=== PATIENT | male | born 1950 ===

== ENCOUNTER 2020-03-06 08:49 | Inpatient (IN) ==
[2020-03-06 09:51] LABS: ABS Lymphocytes 0.7 10^3/ul (1.0-4.8); ABS Monocytes 0.4 10^3/ul (0-0.8); ABS Neutrophils 4.2 10^3/ul (1.5-7.7); Eosinophil % 0.1 %; Hematocrit 37 % (42-52); Hemoglobin 12.6 g/dL (14.0-18.0); Lymphocyte % 12.9 %; Mean Corpuscular HGB Conc 34 g/dL (31-36); Mean Corpuscular Hemoglobin 32 pg (27-31); Mean Corpuscular Volume 92 fL (80-94); Mean Platelet Volume 8.1 fL (7.4-10.4); Platelet Count 150 10^3/uL (150-450); Red Blood Count 4.01 10^6 /uL (4.18-5.48); Red Cell Distribution Width 13 % (10-15); White Blood Count 5.3 10^3/uL (3.5-10.8)
[2020-03-06 10:07] LABS: Activated Partial Thrombo Time 30.9 seconds (26.0-38.0); INR 1.06 (0.82-1.09)
[2020-03-06 10:13] LABS: ALT 64 U/L (7-52); AST 111 U/L (13-39); Albumin 3.2 g/dL (3.2-5.2); Albumin/Globulin Ratio 0.8 (1-3); Alkaline Phosphatase 72 U/L (34-104); Anion Gap 7 mmol/L (2-11); BUN/Creatinine Ratio 16.7 (8-20); Blood Urea Nitrogen 20 mg/dL (6-24); C Reactive Protein 102.08 mg/L (<8.01); CO2 Carbon Dioxide 27 mmol/L (22-32); Calcium 8.7 mg/dL (8.6-10.3); Chloride 103 mmol/L (101-111); EGFR African American 73.1 (>60); EGFR Non-African American 60.4 (>60); Globulin 3.8 g/dL (2-4); Glucose 93 mg/dL (70-100); Potassium 4.2 mmol/L (3.5-5.0); Sodium 137 mmol/L (135-145)
[2020-03-06 10:17] LABS: Troponin I 0.05 ng/mL (<0.03)
[2020-03-06 10:28] LABS: LDH 335 U/L (140-271)
[2020-03-06 10:40] LABS: Ferritin 373.8 ng/mL (24-336)
[2020-03-06 11:03] LABS: Influenza A Molecular Negative (Negative); Influenza B Molecular Negative (Negative)
[2020-03-06] MEDS ORDERED: Ondansetron 4 mg VIAL 2 MG/ML 2 ml VIAL IV PRN (12:03)
[2020-03-06] MEDS ORDERED: Dexamethasone IV 6 MG in NS 0.9% 50 ML 50 ML IVPB SCH (13:00)
[2020-03-06] MEDS ORDERED: Dexamethasone IV 4 MG/ML VIAL 1 ml VIAL IV SLOW PU SCH (14:00)
[2020-03-06] MEDS: Enoxaparin 40 MG/0.4 ML SYR SUBCUT SCH (16:22)
[2020-03-06] MEDS ORDERED: Remdesivir 5 MG/ML LIQ IV Vial 200 MG in NS 0.9% 250 ml 210 ML IV ONE (17:00)
[2020-03-07 04:23] LABS: Urine Appearance Cloudy; Urine Bilirubin Negative (Negative); Urine Blood 2+ (Negative); Urine Color Yellow; Urine Glucose Negative (Negative); Urine Ketones 1+ (Negative); Urine Nitrite Negative (Negative); Urine Protein 2+(100 mg/dL) (Negative); Urine Specific Gravity 1.027 (1.010-1.030); Urine Urobilinogen Negative (Negative)
[2020-03-07 04:31] LABS: Urine Bacteria Absent (Absent); Urine Granular Casts Present (Absent); Urine Red Blood Cell Trace(0-2/hpf) (Absent); Urine Squamous Epithelial Cell Present (Absent); Urine White Blood Cell Trace(0-5/hpf) (Absent)
[2020-03-07 07:18] LABS: ABS Lymphocytes 0.4 10^3/ul (1.0-4.8); ABS Monocytes 0.2 10^3/ul (0-0.8); ABS Neutrophils 2.9 10^3/ul (1.5-7.7); Hematocrit 40 % (42-52); Hemoglobin 13.6 g/dL (14.0-18.0); Lymphocyte % 10.1 %; Mean Corpuscular HGB Conc 34 g/dL (31-36); Mean Corpuscular Hemoglobin 32 pg (27-31); Mean Corpuscular Volume 93 fL (80-94); Mean Platelet Volume 8.3 fL (7.4-10.4); Nucleated Red Blood Cells % 0.1; Platelet Count 169 10^3/uL (150-450); Red Cell Distribution Width 13 % (10-15); White Blood Count 3.5 10^3/uL (3.5-10.8)
[2020-03-07 07:30] LABS: ALT 79 U/L (7-52); AST 99 U/L (13-39); Albumin 3.2 g/dL (3.2-5.2); Albumin/Globulin Ratio 0.8 (1-3); Alkaline Phosphatase 75 U/L (34-104); Anion Gap 6 mmol/L (2-11); BUN/Creatinine Ratio 23.7 (8-20); Blood Urea Nitrogen 23 mg/dL (6-24); CO2 Carbon Dioxide 29 mmol/L (22-32); Calcium 8.9 mg/dL (8.6-10.3); Chloride 103 mmol/L (101-111); EGFR African American 93.4 (>60); EGFR Non-African American 77.2 (>60); Globulin 3.9 g/dL (2-4); Glucose 133 mg/dL (70-100); Magnesium 1.9 mg/dL (1.9-2.7); Potassium 4.5 mmol/L (3.5-5.0); Sodium 138 mmol/L (135-145); Total Protein 7.1 g/dL (6.4-8.9)
[2020-03-07 07:42] LABS: Troponin I 0.03 ng/mL (<0.03)
[2020-03-07] MEDS: Enoxaparin 40 MG/0.4 ML SYR SUBCUT SCH (12:58)
[2020-03-07] MEDS: Dexamethasone IV 4 MG/ML VIAL 1 ml VIAL PO SCH (12:58)
[2020-03-07 15:12] LABS: Adenovirus Negative (Negative); Bordetella parapertussis Negative (Negative); Bordetella pertussis Negative (Negative); Chlamydophila pneumoniae Negative (Negative); Coronavirus 229E Negative (Negative); Coronavirus HKU1 Negative (Negative); Coronavirus NL63 Negative (Negative); Coronavirus OC43 Negative (Negative); Human Metapneumovirus Negative (Negative); Human Rhinovirus/ Enterovirus Negative (Negative); Influenza A Negative (Negative); Influenza B Negative (Negative); Mycoplasmoides pneumoniae Negative (Negative); Parainfluenza Virus 1 Negative (Negative); Parainfluenza Virus 2 Negative (Negative); Parainfluenza Virus 3 Negative (Negative); Parainfluenza Virus 4 Negative (Negative); Respiratory Syncytial Virus Negative (Negative); Specimen Source NASOPHARYNGEAL SWAB
[2020-03-07] MEDS: Remdesivir 5 MG/ML LIQ IV Vial 100 MG in NS 0.9% 250 ml 230 ML IV SCH (19:07)
[2020-03-08] MEDS: Dexamethasone IV 4 MG/ML VIAL 1 ml VIAL PO SCH (09:21)
[2020-03-08 09:55] LABS: ABS Lymphocytes 0.4 10^3/ul (1.0-4.8); ABS Monocytes 0.5 10^3/ul (0-0.8); ABS Neutrophils 8.2 10^3/ul (1.5-7.7); Hematocrit 39 % (42-52); Hemoglobin 13.1 g/dL (14.0-18.0); Lymphocyte % 4.8 %; Mean Corpuscular HGB Conc 34 g/dL (31-36); Mean Corpuscular Hemoglobin 31 pg (27-31); Mean Corpuscular Volume 92 fL (80-94); Mean Platelet Volume 8.6 fL (7.4-10.4); Platelet Count 234 10^3/uL (150-450); Red Cell Distribution Width 13 % (10-15); White Blood Count 9.2 10^3/uL (3.5-10.8)
[2020-03-08 10:25] LABS: Albumin 3.1 g/dL (3.2-5.2); Calcium 8.6 mg/dL (8.6-10.3); Potassium 4.1 mmol/L (3.5-5.0); Total Bilirubin 0.3 mg/dL (0.2-1.0)
[2020-03-08 10:31] LABS: Albumin/Globulin Ratio 0.8 (1-3); BUN/Creatinine Ratio 27.7 (8-20); EGFR African American 96.9 (>60); Globulin 3.8 g/dL (2-4); Total Protein 6.9 g/dL (6.4-8.9)
[2020-03-08] MEDS ORDERED: Enoxaparin 30 MG/0.3 ML SYR SUBCUT SCH (15:00)
[2020-03-08] MEDS: Remdesivir 5 MG/ML LIQ IV Vial 100 MG in NS 0.9% 250 ml 230 ML IV SCH (19:34)
[2020-03-08] MEDS: Enoxaparin 30 MG/0.3 ML SYR SUBCUT SCH (19:36)
[2020-03-09] MEDS: Enoxaparin 30 MG/0.3 ML SYR SUBCUT SCH ×2 (05:11→19:49)
[2020-03-09 07:50] LABS: Albumin 3.1 g/dL (3.2-5.2); Calcium 8.6 mg/dL (8.6-10.3); Potassium 4.3 mmol/L (3.5-5.0); Total Bilirubin 0.4 mg/dL (0.2-1.0)
[2020-03-09 07:56] LABS: Albumin/Globulin Ratio 0.9 (1-3); BUN/Creatinine Ratio 25.7 (8-20); EGFR African American 89.2 (>60); EGFR Non-African American 73.7 (>60); Globulin 3.4 g/dL (2-4); Total Protein 6.5 g/dL (6.4-8.9)
[2020-03-09 08:25] LABS: ABS Lymphocytes 0.6 10^3/ul (1.0-4.8); ABS Monocytes 0.9 10^3/ul (0-0.8); ABS Neutrophils 9.4 10^3/ul (1.5-7.7); Hematocrit 36 % (42-52); Hemoglobin 12.5 g/dL (14.0-18.0); Lymphocyte % 5.1 %; Mean Corpuscular HGB Conc 35 g/dL (31-36); Mean Corpuscular Hemoglobin 32 pg (27-31); Mean Corpuscular Volume 92 fL (80-94); Mean Platelet Volume 8.4 fL (7.4-10.4); Platelet Count 243 10^3/uL (150-450); Red Blood Count 3.91 10^6 /uL (4.18-5.48); Red Cell Distribution Width 13 % (10-15); White Blood Count 10.9 10^3/uL (3.5-10.8)
[2020-03-09] MEDS: Remdesivir 5 MG/ML LIQ IV Vial 100 MG in NS 0.9% 250 ml 230 ML IV SCH (19:47)
[2020-03-10] MEDS: Enoxaparin 30 MG/0.3 ML SYR SUBCUT SCH ×2 (06:56→17:26)
[2020-03-10] MEDS: Remdesivir 5 MG/ML LIQ IV Vial 100 MG in NS 0.9% 250 ml 230 ML IV SCH (19:05)
[2020-03-11] MEDS: Enoxaparin 30 MG/0.3 ML SYR SUBCUT SCH ×2 (04:50→18:21)
[2020-03-11 10:00] LABS: ABS Basophils 0.1 10^3/ul (0-0.2); ABS Monocytes 1.1 10^3/ul (0-0.8); ABS Neutrophils 10.5 10^3/ul (1.5-7.7); Hematocrit 39 % (42-52); Hemoglobin 13.3 g/dL (14.0-18.0); Lymphocyte % 8.1 %; Mean Corpuscular HGB Conc 34 g/dL (31-36); Mean Corpuscular Hemoglobin 31 pg (27-31); Mean Corpuscular Volume 91 fL (80-94); Mean Platelet Volume 7.9 fL (7.4-10.4); Platelet Count 327 10^3/uL (150-450); Red Blood Count 4.26 10^6 /uL (4.18-5.48); Red Cell Distribution Width 13 % (10-15); White Blood Count 12.6 10^3/uL (3.5-10.8)
[2020-03-11 10:17] LABS: Albumin/Globulin Ratio 0.9 (1-3); C Reactive Protein 18.35 mg/L (<8.01); Calcium 8.6 mg/dL (8.6-10.3); EGFR African American 90.2 (>60); EGFR Non-African American 74.5 (>60); Globulin 3.4 g/dL (2-4); Potassium 3.9 mmol/L (3.5-5.0); Total Bilirubin 0.5 mg/dL (0.2-1.0); Total Protein 6.4 g/dL (6.4-8.9)
[2020-03-11] MEDS: Remdesivir 5 MG/ML LIQ IV Vial 100 MG in NS 0.9% 250 ml 230 ML IV SCH (18:21)
[2020-03-12 05:19] LABS: ABS Lymphocytes 0.9 10^3/ul (1.0-4.8); Hematocrit 40 % (42-52); Hemoglobin 13.5 g/dL (14.0-18.0); Lymphocyte % 6.4 %; Mean Corpuscular HGB Conc 34 g/dL (31-36); Mean Corpuscular Hemoglobin 31 pg (27-31); Mean Corpuscular Volume 92 fL (80-94); Mean Platelet Volume 8.2 fL (7.4-10.4); Platelet Count 330 10^3/uL (150-450); Red Blood Count 4.34 10^6 /uL (4.18-5.48); Red Cell Distribution Width 13 % (10-15)
[2020-03-12] MEDS: Enoxaparin 30 MG/0.3 ML SYR SUBCUT SCH ×2 (05:46→17:39)
[2020-03-12] MEDS ORDERED: Polyethylene Glycol 3350 17 GM PACKET PO PRN (17:05)
[2020-03-12] MEDS: Remdesivir 5 MG/ML LIQ IV Vial 100 MG in NS 0.9% 250 ml 230 ML IV SCH (17:39)
[2020-03-12] MEDS: Senna TAB 8.6 mg TAB PO PRN (17:39)
[2020-03-13] MEDS: Enoxaparin 30 MG/0.3 ML SYR SUBCUT SCH ×2 (05:52→18:09)
[2020-03-14] MEDS: Enoxaparin 30 MG/0.3 ML SYR SUBCUT SCH ×2 (05:42→17:32)
[2020-03-14 09:22] LABS: ABS Basophils 0.1 10^3/ul (0-0.2); ABS Lymphocytes 1.4 10^3/ul (1.0-4.8); ABS Neutrophils 9.9 10^3/ul (1.5-7.7); Eosinophil % 0.1 %; Hematocrit 38 % (42-52); Mean Corpuscular HGB Conc 34 g/dL (31-36); Mean Corpuscular Hemoglobin 31 pg (27-31); Mean Corpuscular Volume 91 fL (80-94); Mean Platelet Volume 8.1 fL (7.4-10.4); Platelet Count 426 10^3/uL (150-450); Red Blood Count 4.19 10^6 /uL (4.18-5.48); Red Cell Distribution Width 13 % (10-15); White Blood Count 12.3 10^3/uL (3.5-10.8)
[2020-03-14 09:41] LABS: BUN/Creatinine Ratio 23.1 (8-20); Calcium 8.3 mg/dL (8.6-10.3); EGFR African American 86.2 (>60); EGFR Non-African American 71.2 (>60); Potassium 3.6 mmol/L (3.5-5.0)
[2020-03-15 05:55] LABS: Albumin 2.8 g/dL (3.2-5.2); Calcium 8.1 mg/dL (8.6-10.3); Potassium 4.3 mmol/L (3.5-5.0); Total Bilirubin 0.7 mg/dL (0.2-1.0)
[2020-03-15 06:01] LABS: Albumin/Globulin Ratio 0.8 (1-3); EGFR African American 94.5 (>60); EGFR Non-African American 78.1 (>60); Globulin 3.3 g/dL (2-4); Total Protein 6.1 g/dL (6.4-8.9)
[2020-03-15 06:05] LABS: ABS Monocytes 0.8 10^3/ul (0-0.8); ABS Neutrophils 6.5 10^3/ul (1.5-7.7); Hematocrit 40 % (42-52); Hemoglobin 13.3 g/dL (14.0-18.0); Lymphocyte % 12.1 %; Mean Corpuscular HGB Conc 34 g/dL (31-36); Mean Corpuscular Hemoglobin 31 pg (27-31); Mean Corpuscular Volume 92 fL (80-94); Mean Platelet Volume 8.4 fL (7.4-10.4); Platelet Count 339 10^3/uL (150-450); Red Cell Distribution Width 13 % (10-15); White Blood Count 8.4 10^3/uL (3.5-10.8)
[2020-03-15] MEDS: Enoxaparin 30 MG/0.3 ML SYR SUBCUT SCH ×2 (06:25→17:45)
[2020-03-15] MEDS: Senna TAB 8.6 mg TAB PO PRN (21:04)
[2020-03-16] MEDS: Enoxaparin 30 MG/0.3 ML SYR SUBCUT SCH (05:10)
[2020-03-17] MEDS: Enoxaparin 30 MG/0.3 ML SYR SUBCUT SCH (05:44)
[2020-03-18] MEDS: Enoxaparin 30 MG/0.3 ML SYR SUBCUT SCH (06:15)
[2020-03-18 12:33] VITALS: BP 103/59
== END 2020-03-18 10:00 | disposition swing bed (61) | DRG 177 ==
LOC: ED 08:49 → MED 12:03
PROVIDERS: ADMIT Student in an Organized Health Care Education/Training Program; ATTEND Internal Medicine

== ENCOUNTER 2020-03-18 10:01 | Inpatient (IN) ==
[2020-03-18] MEDS ORDERED: Senna TAB 8.6 mg TAB PO PRN (14:29)
[2020-03-18] MEDS ORDERED: Sodium Phosphate ADULT ENEMA 133 ML BTL PR PRN (14:29)
[2020-03-18] MEDS ORDERED: Magnesium Hydroxide LIQ 30 ML UDC PO PRN (14:29)
[2020-03-19] MEDS: Enoxaparin 30 MG/0.3 ML SYR SUBCUT SCH (08:21)
[2020-03-20] MEDS: Enoxaparin 30 MG/0.3 ML SYR SUBCUT SCH (07:32)
[2020-03-21 08:23] VITALS: BP 99/57
[2020-03-21] MEDS: Enoxaparin 30 MG/0.3 ML SYR SUBCUT SCH (08:25)
== END 2020-03-21 16:10 | DRG 177 ==
LOC: MED 10:01
PROVIDERS: ADMIT Internal Medicine; ATTEND Internal Medicine